=== PATIENT | female | born 1975 | race Caucasian/White ===

== ENCOUNTER 2024-03-14 09:46 | Emergency (ER) | payer BC, SELFPAY ==
[2024-03-14] VITALS (17 sets, daily range): BP systolic 106–123; BP diastolic 58–89; PULSE 49–70
--- NOTE | 2024-03-14 10:03 | ED.GENMED ---
History of Present Illness
General
Chief Complaint: Breathing Problem
Source: patient
Exam Limitations: none
Time Seen by Provider: 03/14/24 10:01
Nursing documentation reviewed up to this point in time: agreed with
History of Present Illness
History of Present Illness:
Patient with history of previous anemia, treated with iron infusion, secondary to gastric sleeve surgery, presents to ED secondary to sudden onset of shortness of breath, on 2 separate occasions since yesterday evening. Patient states that she was
in the kitchen preparing dinner last night, when she felt acutely short of breath. She sat down and her symptoms slowly resolved. This morning, while she was at school, in standing position, she once again experienced similar shortness of breath
with near syncopal episode. Denies associated chest palpitations, nausea, or chest pain. Denies back pain. Denies leg pain or swelling. Denies recent travel or surgery. Patient reports having had breakfast this morning. Patient has had history
of syncopal episodes when standing up, secondary to low blood pressure. Patient's last blood work in December had revealed hemoglobin 12. At baseline, patient states that her hemoglobin is around 10.
Review of Systems
Review of Systems
Allergies reviewed?: Yes
All Other Systems: ROS reviewed and negative except as documented in HPI and ROS
Constitutional: Reports no symptoms
EENT: Reports no symptoms
Respiratory: Reports trouble breathing; Denies cough
Cardiac: Reports other (Near syncope); Denies chest pain, diaphoresis or palpitations
ABD/GI: Reports no symptoms
: Reports no symptoms
Musculoskeletal: Reports no symptoms
Skin: Reports no symptoms
Neurological: Reports dizzy; Denies headache
Phy Exam
Physical Exam
Physical Exam:
Physical Exam
General: no apparent distress, not acutely ill. afebrile
Head: nc/at. eomi
Neck: supple. no meningeal signs. no stridor
Heart: s1/s2 regular rate and rhythm, no murmur. equal radial pulses.
Lungs: no acute respiratory distress. clear bilaterally
Abdomen: normal bowel sounds. not tender.
Neuro: alert and oriented. no focal neurological deficits
Skin: no rash
Psychiatric: well kept. interactive and cooperative
Extremities: no edema. no calf tenderness.
Scores
Heart Failure Risk
Heart Failure Risk Score: Not Applicable
Course
Orders/Labs/Results
Orders:
Orders
03/14/24 09:53
Electrocardiogram (*1) Urgent
Reason for Study: Shortness of Breath
EKG- Treatment ONCE
03/14/24 10:14
Orthostatic VS- Treatment ONCE
Test Result ONCE
03/14/24 10:18
Complete Blood Count/With Diff Urgent
Comprehensive Metabolic Panel Urgent
D-Dimer Urgent
HCG, Serum Qualitative Screen Urgent
Magnesium Urgent
TSH Urgent
Troponin I Urgent
03/14/24 10:26
Urinalysis Reflex To Culture Urgent
Date Specimen was Collected: 03/14/24
Time Specimen was Collected: 10:25
03/14/24 10:59
CR Chest - 2 Views Urgent
Comment:
Reason For Exam: sob
03/14/24 11:27
0.9% Sodium Chloride 500 ml [Nss] 500 ml IV BOLUS
03/14/24 11:30
0.9% Sodium Chloride 1000 ml [Nss] 1,000 ml IV BOLUS
Abnormal Lab Results
03/14/24
10:18
RBC 3.92 L 10^6/uL
(4.20-5.40)
Hct 35.7 L %
(37.0-47.0)
MPV 10.8 H fL
(7.4-10.4)
Sodium 133 L mmol/L
(135-145)
AST 57 H U/L
(14-36)
ALT 46 H U/L
(0-35)
Total Protein 6.1 L g/dl
(6.3-8.2)
03/14/24 10:18
03/14/24 10:18
Vital Signs
Initial and Last Documented VS:
Initial Vital Signs
Temp Pulse Resp BP Pulse Ox
97.4 F 58 18 123/77 100
03/14/24 09:49 03/14/24 09:49 03/14/24 09:49 03/14/24 09:49 03/14/24 09:49
Last Documented Vital Signs
Temp Pulse Resp BP Pulse Ox
97.4 F 46 16 116/72 100
03/14/24 09:49 03/14/24 13:45 03/14/24 13:45 03/14/24 13:30 03/14/24 13:45
MDM/Problems Addressed
MDM/Problems Addressed:
Patient with an unremarkable workup in ED, including blood work, EKG, chest x-ray, including D-dimer. Patient given IV fluids, as she appears to have some signs of orthostatic hypotension. In addition, episodically, patient's heart rate noted to
decrease his 40s for short duration, raising the possibility of whether or not she may be experiencing symptomatic bradycardia. Patient states that she has seen home health caregiver at [facility], with whom she will follow-up. Advised to
return to ED with worsening symptoms. Patient otherwise is alert, awake, and oriented, and without any distress at time of discharge to the care of her friend.
*EKG
Interpreted by ED Provider?: Yes
EKG Intrepretation Date: 03/14/24
Heart Rate: 55
Rate: bradycardiac
Rhythm: sinus
[place]: normal axis
Interval: normal interval
QRS Pattern: normal QRS
*Critical Care Note
Total Time (30-74mins, 75-104mins- exclusive of procedures): Not Applicable
ED Attending Note
-
Portions of this chart may have been created with voice recognition software.� Occasional wrong word or��sound alike� substitutions may have occurred due to the inherent limitations of voice recognition software.
Discharge Plan
Departure
Patient Disposition: Home (Routine Discharge)
Date of Disposition: 03/14/24
Time of Disposition: 13:42
Patient with high blood pressure during this ER visit?: Yes
Condition: Good
Discharge Problem:
Dizziness, Bradycardia
Instructions: Bradycardia, Dizziness, Adult ED
Referrals:
Radha Stevens PA-C [Family Provider] -
Stand Alone Forms: Back to School
Activity Restrictions/Additional Instructions:
As discussed, please follow-up with your primary care physician and/or home health caregiver for further evaluation and treatment. Please return to ED with worsening symptoms.
Interventions
Interventions:
*Risk Screen - Suicide Last Done: 03/14/24 10:14
*General Assessment Last Done: 03/14/24 09:50
*Neglect/Abuse Screening Last Done: 03/14/24 10:14
*ED COVID-19 Vaccine History Last Done: 03/14/24 09:50
*Nursing Disposition Last Done: 03/14/24 13:55
ED- Cardiac Assessment Last Done: 03/14/24 10:14
ED- Pulmonary Assessment Last Done: 03/14/24 10:14
Discharge Date and Time
Discharge Date/Time: 03/14/24 13:55
Print Language: CYMRO
[2024-03-14 10:16] LABS: Glucose - Point of Care 94 mg/dl (70-99)
[2024-03-14 10:28] LABS: % Basophils 0.4 % (0-2); % Eosinophils 1.3 % (0-6); % Immature Granulocytes 0.2 % (0-0.5); % Lymphocytes 25.1 % (20.5-51.1); Absolute Eosinophils 0.1 10^3/uL (0-0.7); Absolute Lymphocytes 1.4 10^3/uL (1.2-3.4); Absolute Monocytes 0.4 10^3/uL (0.1-0.6); Absolute Neutrophils 3.6 10^3/uL (1.4-6.5); Hematocrit 35.7 % (37.0-47.0); Hemoglobin 12.1 g/dL (12.0-16.0); Mean Corp Hgb Conc. 33.9 g/dL (33.0-37.0); Mean Corpuscular Hgb 30.9 pg (27.0-31.0); Mean Corpuscular Volume 91.1 fL (81.0-99.0); Mean Platelet Volume 10.8 fL (7.4-10.4); Nucleated Red Blood Cells % 0 %; Platelet Count 154 10^3/uL (130-400); Red Blood Cell Count 3.92 10^6/uL (4.20-5.40); White Blood Cell Count 5.4 10^3/uL (4.8-10.8)
[2024-03-14 10:37] LABS: D-Dimer 0.34 ug/mlFEU (0.00-0.50)
[2024-03-14 10:45] LABS: HCG, Serum Qualitative Screen Negative
[2024-03-14 10:49] LABS: Urine Albumin Negative (Neg - Trace); Urine Bilirubin Negative (Negative); Urine Character Clear (Clear); Urine Color Yellow; Urine Glucose Negative (Negative); Urine Ketone Negative (Negative); Urine Leukocyte Negative (Negative); Urine Nitrite Negative (Negative); Urine Occult Blood Negative (Negative); Urine Urobilinogen Negative (Neg - 1+); Urine pH 6.5 (5.0-9.0)
[2024-03-14 10:52] LABS: ALT (SGPT) 46 U/L (0-35); AST (SGOT) 57 U/L (14-36); Albumin 3.7 g/dl (3.5-5.0); Alkaline Phosphatase 123 U/L (38-126); Blood Urea Nitrogen 10 mg/dl (7-17); Calcium 9.1 mg/dl (8.4-10.2); Carbon Dioxide 25 mmol/L (22-30); Chloride 102 mmol/L (98-107); Glucose 87 mg/dl (70-99); Magnesium 1.8 mg/dl (1.6-2.3); Potassium 3.8 mmol/L (3.5-5.1); Sodium 133 mmol/L (135-145); Total Bilirubin 0.8 mg/dl (0.2-1.3); Total Protein 6.1 g/dl (6.3-8.2); eGFR > 60.00
[2024-03-14 10:56] LABS: Troponin I < 0.012 ng/ml
[2024-03-14] MEDS: NSS 1000 IV (11:31)
[2024-03-14 11:35] LABS: TSH 2.62 uIU/ml (0.47-4.68)
== END 2024-03-14 13:55 | disposition home or self-care (01) ==
LOC: EMR 09:46
PROVIDERS: EMERGENCY PHYSICIAN Emergency Medicine; FAMILY PHYSICIAN Physician Assistant Medical
DX: R55 Syncope and collapse (principal); R06.02 Shortness of breath; R00.1 Bradycardia, unspecified; R42 Dizziness and giddiness; R03.0 Elevated blood-pressure reading, without diagnosis of hypertension; I45.6 Pre-excitation syndrome; D64.9 Anemia, unspecified; Z98.84 Bariatric surgery status; Z90.5 Acquired absence of kidney
CPT/HCPCS: 99285; 96360; 71046; 80053; 81003; 82962; 83735; 84443; 84484; 84703; 85025; 85379; 93005